=== PATIENT | male | born 1945 | race Caucasian/White ===

== ENCOUNTER 2018-02-06 06:10 | Emergency (ER) | payer OTHER ==
[~2018-02-06] VITALS: Ht 188 cm; Wt 95.0 kg
[2018-02-06 06:12] VITALS: Ht 188 cm; Wt 95.0 kg
[2018-02-06] MEDS ORDERED: LIPITOR10 MG (06:14)
[2018-02-06] MEDS ORDERED: COMBIVENT RESPIM4 GM (06:14)
[2018-02-06] MEDS ORDERED: COZAAR50 MG (06:15)
[2018-02-06] MEDS ORDERED: HYTRIN10 MG (06:15)
[2018-02-06] MEDS ORDERED: CARDIZEM 90 MG90 MG (06:15)
[2018-02-06] MEDS ORDERED: LASIX20 MG (06:15)
[2018-02-06 07:21] LABS: BASOPHILS 0.1 % (0-2); EOSINOPHILS 0.1 % (0-7); HEMATOCRIT 37.5 % (42.0-54.0); HEMOGLOBIN 12.6 g/dL (13.5-17.5); IMMATURE GRANULOCYTES 0.1 % (0-5); LYMPHOCYTES 3.6 % (15-50); MCH 26.8 pg (26.0-34.0); MCHC 33.6 g/dL (31.0-37.0); MCV 79.8 fL (80.0-100.0); NEUTROPHILS 91.1 % (40-80); PLATELET COUNT 167 10x3/uL (130-400); RDW 16.9 % (11.5-14.5)
[2018-02-06 07:52] LABS: ALBUMIN 3.3 g/dL (3.4-5.0); ALKALINE PHOSPHATASE 57 U/L (46-116); ALT (SGPT) 15 U/L (10-68); BILIRUBIN - TOTAL 0.35 mg/dL (0.2-1.3); CALC OSMOLALITY 272 mosm/kg (275-300); CARBON DIOXIDE 25.4 mmol/L (21.0-32.0); CHLORIDE - SERUM 101 mmol/L (98-107); CREATININE - SERUM 1.7 mg/dL (0.6-1.3); GLUCOSE 139 mg/dL (74-106); POTASSIUM - SERUM 3.7 mmol/L (3.5-5.1); PROTEIN - SERUM 7.6 g/dL (6.4-8.2); SODIUM 135 mmol/L (136-145); UREA NITROGEN 16 mg/dL (7-18); eGFR NON AFRICAN AMERICAN 42 mL/min (90-120)
[2018-02-06 07:54] LABS: AMYLASE - SERUM 63 U/L (25-115); LIPASE 115 U/L (73-393)
[2018-02-06 08:00] LABS: TROPONIN-I < 0.017 ng/mL (0.000-0.060)
[2018-02-06] MEDS ORDERED: HYDROCODON-ACE1 EAC7 PO (08:24)
[2018-02-06 09:00] VITALS: BP 133/76
== END 2018-02-06 09:01 | disposition home or self-care (01) ==
LOC: D.ER 06:10
PROVIDERS: Family Medicine
DX: R10.9 Unspecified abdominal pain (principal); D64.9 Anemia, unspecified; N28.9 Disorder of kidney and ureter, unspecified; I11.0 Hypertensive heart disease with heart failure; I50.9 Heart failure, unspecified